=== PATIENT | male | born 1975 | race Two or more races ===

== ENCOUNTER 2021-02-28 17:14 | Emergency (ER) | payer MEDICAID, OTHER ==
[~2021-02-28] VITALS: Ht 180.3 cm; Wt 77.1 kg
[2021-02-28 18:00] VITALS: BP 121/61
--- NOTE | 2021-02-28 18:05 | NUR ---
BISELF C/O LT ANKLE SWELLING FROM [facility] LAST NIGHT "TOO MUCH DRINKING". RATES PAIN 10/10. WILL CONTINUE TO MONITOR THE PATIENT.
--- NOTE | 2021-02-28 19:04 | NUR ---
Patient discharged to home in stable condition. Written and verbal after care instructions given. Patient verbalizes understanding of instruction.
== END 2021-02-28 19:04 | disposition home or self-care (01) ==
LOC: ER 17:29
DX: S82.435A Nondisplaced oblique fracture of shaft of left fibula, initial encounter for closed fracture (principal); X50.1XXA Overexertion from prolonged static or awkward postures, initial encounter; Y93.89 Activity, other specified; Y92.89 Other specified places as the place of occurrence of the external cause; Y99.8 Other external cause status
CPT/HCPCS: 73610-TC